=== PATIENT | female | born 1955 | race Caucasian/White ===

== ENCOUNTER 2018-08-21 15:06 | Emergency (ER) | payer BC, OTHER ==
[~2018-08-21] VITALS: Ht 170.2 cm; Wt 94.3 kg
[2018-08-21 15:33] LABS: BASOPHILS % (AUTO) 0 % (0-10); EOSINOPHILS # (AUTO) 0.2 10^3/uL (0.0-0.3); EOSINOPHILS % (AUTO) 3 % (0-10); HEMATOCRIT 43 % (35-52); HEMOGLOBIN 14.5 G/DL (11.5-16.0); LYMPHOCYTES # (AUTO) 1.6 X 10^3 (1.0-4.0); LYMPHOCYTES % (AUTO) 24 % (12-44); MEAN CORPUSCULAR HEMOGLOBIN 31 PG (25-34); MEAN CORPUSCULAR HGB CONC 34 G/DL (32-36); MEAN CORPUSCULAR VOLUME 90 FL (80-99); MEAN PLATELET VOLUME 9.5 FL (7.4-10.4); MONOCYTES # (AUTO) 0.6 X 10^3 (0.0-1.0); MONOCYTES % (AUTO) 8 % (0-12); NEUTROPHILS # (AUTO) 4.3 X 10^3 (1.8-7.8); NEUTROPHILS % (AUTO) 65 % (42-75); PLATELET COUNT 82 10^3/uL (130-400); RED CELL DISTRIBUTION WIDTH 12.6 % (10.0-14.5); WHITE BLOOD COUNT 6.7 10^3/uL (4.3-11.0)
[2018-08-21 15:50] LABS: ALANINE AMINOTRANSFERASE 14 U/L (0-55); ALBUMIN 4.3 GM/DL (3.2-4.5); ALKALINE PHOSPHATASE 82 U/L (40-136); BILIRUBIN,TOTAL 0.4 MG/DL (0.1-1.0); BUN/CREATININE RATIO 12; CALCIUM 9.5 MG/DL (8.5-10.1); CARBON DIOXIDE 24 MMOL/L (21-32); CHLORIDE 104 MMOL/L (98-107); CREATININE SERUM 0.69 MG/DL (0.60-1.30); GFR ESTIMATED > 60; GLUCOSE 84 MG/DL (70-105); POTASSIUM 3.8 MMOL/L (3.6-5.0); SODIUM 141 MMOL/L (135-145); TOTAL PROTEIN 7.9 GM/DL (6.4-8.2)
[2018-08-21] MEDS ORDERED: NS 100 ML (IVPB) BAG IV ONE (16:15)
[2018-08-21] MEDS ORDERED: IOHEXOL 350 MG/ML 100 ML (OMNIPAQUE 350) VIAL IV ONE (16:15)
[2018-08-21] MEDS ORDERED: HOLD METFORMIN - RECEIVED CONTRAST 20 ML VIAL IV SCH (16:15)
--- NOTE | 2018-08-21 16:35 | Diagnostic Imaging Report ---
PROCEDURE: CT neck soft tissue with contrast. TECHNIQUE: Multiple contiguous axial images were obtained through the neck after the administration of contrast. Auto Exposure Controls were utilized during the CT exam to meet ALARA standards for radiation dose reduction. INDICATION: Left-sided neck pain. Difficulty swallowing. COMPARISON: None. FINDINGS: No mass or fluid collection in the neck. No cervical lymphadenopathy. The laryngeal and pharyngeal soft tissues are symmetric, bilaterally, with no suspicious mass or enhancement. Normal floor of the mouth, tongue base and epiglottis. Normal prevertebral soft tissues. The cervical, carotid and vertebral arteries are grossly patent on this nondedicated exam. 1.1 cm cystic lesion in the right thyroid is nonspecific. The major salivary glands are negative. The visualized paranasal sinuses, mastoids and skull base are negative. Moderate degenerative endplate changes in the cervical spine. No acute osseous finding. IMPRESSION: 1. No acute CT finding in the neck. 2. Nonspecific cystic nodule in the right thyroid does not meet size criteria for additional followup. Dictated by: Dictated on workstation # [id number]
[2018-08-21] MEDS ORDERED: KETOROLAC 30 MG/ML VIAL IVP ONE (18:00)
[2018-08-21] MEDS ORDERED: cefTRIAXone FOR IV USE 1,000 MG in WATER (STERILE) FOR INJECTION 10 ML IV ONE (18:00)
[2018-08-21] MEDS ORDERED: RX-HYDROCODONE/APAP 5/325 MG #4 TAB PK PO PRN (18:45)
[2018-08-21] MEDS ORDERED: CEFD300C3 PO (18:50)
[2018-08-21] MEDS ORDERED: ACHD5005 PO (18:50)
--- NOTE | 2018-08-21 18:50 | ED Neck-Back Pain/Injury ---
General Chief Complaint: Head/Cervical Problems Stated Complaint: PAIN IN BACK OF NECK Nursing Triage Note: PT TO ED W/ C/O LT SIDE NECK PAIN ONSET AFTER WAKING, PROGRESSIVELY GETTING WORSE. ALSO C/O "GLOB IN THROAT" WHEN SWALLOWING. PT DENIES INJURY Nursing Sepsis Screen: No Definite Risk Source of Information: Patient Exam Limitations: No Limitations History of Present Illness Date Seen by Provider: Aug 21, 2018 Time Seen by Provider: 15:11 Initial Comments This 62-year-old woman presents to the emergency room as referred by [facility] urgent care for reasons of pain with swallowing. She feels like there is "a wad in the back of my throat" starting yesterday morning. She has a sharp pain inferior to the left occiput when swallowing. She does not actually have any difficulty with the mechanism of swallowing. [facility] urgent care sent her here because they were concerned about possible neurologic deficits that could represent stroke. Stroke activation was not paged as symptoms were greater than 24 hours old in no neurologic deficits could be found on assessment. Patient states she is able to swallow food and fluids without any mechanical difficulty, but swallowing does cause a pain inferior to the left occiput. She has never had this problem before. She has no swelling of the tongue or lip. Family reports her speech is normal with the exception of slight muffling. Articulation otherwise seems normal. She is afebrile. Patient recently completed hydrocodone and amoxicillin for dental infection. She is going back to the dentist soon for an extraction of a tooth on the right. Patient went to the clinic yesterday for this issue and started diclofenac. She states this medication is not particularly helpful in treating the pain. Allergies and Home Medications Allergies Coded Allergies: No Known Drug Allergies (Unverified , 08/21/18) Home Medications Cefdinir 300 Mg Capsule, 300 MG PO BID Prescribed by: FREDY MERRITT on 08/21/181849 Hydrocodone Bit/Acetaminophen 1 Tab Tab, 1 EACH PO Q4-6HR PRN for PAIN-MODERATE Prescribed by: FREDY MERRITT on 08/21/181849 Patient Home Medication List Home Medication List Reviewed: Yes Review of Systems Constitutional: no symptoms reported EENTM: see HPI Respiratory: no symptoms reported Cardiovascular: no symptoms reported Gastrointestinal: no symptoms reported Genitourinary: no symptoms reported : No Musculoskeletal: no symptoms reported Skin: no symptoms reported Psychiatric/Neurological: No Symptoms Reported Past Zddrhpt-Blzwkx-Ighgwf Hx Past Med/Social Hx: Reviewed and Corrections made Patient Social History Alcohol Use: Denies Use Recreational Drug Use: No Smoking Status: Never a Smoker 2nd Hand Smoke Exposure: No Recent Foreign Travel: No Contact w/Someone Who Travel: No Recent Infectious Disease Expo: No Recent Hopitalizations: No Seasonal Allergies Seasonal Allergies: No Past Medical History Surgeries: Yes Hysterectomy Respiratory: No Cardiac: Yes Hypertension (not yet treated) Neurological: No [employer] History: Hysterectomy Genitourinary: No Gastrointestinal: No Musculoskeletal: No Endocrine: No HEENT: No Cancer: No Psychosocial: No Integumentary: No Blood Disorders: No Physical Exam Vital Signs Vital Signs - First Documented 08/21/18 15:12 Temp 98.1 Pulse 86 Resp 18 B/P (MAP) 185/102 (129) Pulse Ox 98 O2 Delivery Room Air Capillary Refill : Less Than 3 Seconds Height, Weight, BMI Height: 5'7.00" Weight: 208lbs. oz. 94.216363cc; BMI Method:Stated General Appearance: No Apparent Distress, WD/WN HEENT: PERRL/EOMI, TMs Normal, Normal ENT Inspection, Other (pharyngeal exam is difficult due to a low palate. There appears to be mild edema and erythema of the posterior pharynx. No purulent drainage or white patches.) Neck: Full Range of Motion, Normal Inspection, Non Tender, Supple Cardiovascular: Regular Rate, Rhythm, No Edema, No Murmur Respiratory: Lungs Clear, Normal Breath Sounds, No Accessory Muscle Use, No Respiratory Distress Gastrointestinal: Non Tender, Soft Extremity: Normal Inspection, No Pedal Edema Neurologic/Psychiatric: Alert, Oriented x3, No Motor/Sensory Deficits, Normal Mood/Affect, insulation board back tender II-XII Norm as Tested Skin: Normal Color, Warm/Dry Progress/Results/Core Measures Results/Orders Lab Results Laboratory Tests Test 08/21/18 15:25 Range/Units White Blood Count 6.7 4.3-11.0 10^3/uL Red Blood Count 4.70 4.35-5.85 10^6/uL Hemoglobin 14.5 11.5-16.0 G/DL Hematocrit 43 35-52 % Mean Corpuscular Volume 90 80-99 FL Mean Corpuscular Hemoglobin 31 25-34 PG Mean Corpuscular Hemoglobin Concent 34 32-36 G/DL Red Cell Distribution Width 12.6 10.0-14.5 % Platelet Count 82 L 130-400 10^3/uL Mean Platelet Volume 9.5 7.4-10.4 FL Neutrophils (%) (Auto) 65 42-75 % Lymphocytes (%) (Auto) 24 12-44 % Monocytes (%) (Auto) 8 0-12 % Eosinophils (%) (Auto) 3 0-10 % Basophils (%) (Auto) 0 0-10 % Neutrophils # (Auto) 4.3 1.8-7.8 X 10^3 Lymphocytes # (Auto) 1.6 1.0-4.0 X 10^3 Monocytes # (Auto) 0.6 0.0-1.0 X 10^3 Eosinophils # (Auto) 0.2 0.0-0.3 10^3/uL Basophils # (Auto) 0.0 0.0-0.1 10^3/uL Sodium Level 141 135-145 MMOL/L Potassium Level 3.8 3.6-5.0 MMOL/L Chloride Level 104 98-107 MMOL/L Carbon Dioxide Level 24 21-32 MMOL/L Anion Gap 13 5-14 MMOL/L Blood Urea Nitrogen 8 7-18 MG/DL Creatinine 0.69 0.60-1.30 MG/DL Estimat Glomerular Filtration Rate > 60 BUN/Creatinine Ratio 12 Glucose Level 84 70-105 MG/DL Calcium Level 9.5 8.5-10.1 MG/DL Corrected Calcium 9.3 8.5-10.1 MG/DL Total Bilirubin 0.4 0.1-1.0 MG/DL Aspartate Amino Transf (AST/SGOT) 14 5-34 U/L Alanine Aminotransferase (ALT/SGPT) 14 0-55 U/L Alkaline Phosphatase 82 40-136 U/L C-Reactive Protein High Sensitivity 2.19 H 0.00-0.50 MG/DL Total Protein 7.9 6.4-8.2 GM/DL Albumin 4.3 3.2-4.5 GM/DL Group A Streptococcus Screen NEGATIVE NEGATIVE My Orders Orders - FREDY ALMANZA MD Cbc With Automated Diff (08/21/18 15:22) Comprehensive Metabolic Panel (08/21/18 15:22) Hs C Reactive Protein (08/21/18 15:22) Rapid Strep A Screen (08/21/18 15:22) Ed Iv/Invasive Line Start (08/21/18 15:22) Ct Neck (Soft Tissue) W (08/21/18 16:05) Iohexol Injection (Omnipaque 350 Mg/Ml 1 (08/21/18 16:15) Received Contrast (Hold Metformin- Contr (08/21/18 16:15) Ns (Ivpb) (Sodium Chloride 0.9% Ivpb Bag (08/21/18 16:15) Ketorolac Injection (Toradol Injection) (08/21/18 18:00) Ceftriaxone For Iv Use (Rocephin For I (08/21/18 18:00) Rx-Hydrocodone/Apap 5-325 Mg (Rx-Vicodin (08/21/18 18:45) Medications Given in ED Vital Signs/I&O 08/21/18 08/21/18 15:12 19:01 Temp 98.1 98.1 Pulse 86 77 Resp 18 18 B/P (MAP) 185/102 (129) 161/87 (111) Pulse Ox 98 95 O2 Delivery Room Air Room Air Blood Pressure Mean: 129 Progress Progress Note : Progress Note CT soft tissues of the neck was obtained to evaluate for possible mass or abs cess in the neck causing this sensation and pain. No significant pathologic findings were reported. There was some evidence of inflammation of the posterior pharynx on exam. Rapid strep test was negative. Patient was empirically treated with Rocephin and Omnicef was prescribed. Patient did have moderate improvement in pain with Toradol. Ibuprofen and hydrocodone were recommended to take at home. Ultimately, no specific cause for her pain was identified. I'm suspicious she is having referred pain from the throat or a tooth. Patient seemed to have no neurologic deficits with swallowing or neurologic exam. Speech was normal. Outpatient follow-up was recommended. Referral to ENT might be appropriate if antibiotics do not correct her problem. Diagnostic Imaging Diagonstic Imaging: CT Plain Films/CT/US/NM/MRI: other (CT neck) Comments CT neck viewed by me and report reviewed. See report below: NAME: ROBERT MUSE MED REC#: [id number] PT STATUS: REG ER : 1955 PHYSICIAN: RFEDY ALMANZA MD ADMIT DATE: 08/21/18/ER Signed Date of Exam: 08/21/18 CT NECK (SOFT TISSUE) W PROCEDURE: CT neck soft tissue with contrast. TECHNIQUE: Multiple contiguous axial images were obtained through the neck after the administration of contrast. Auto Exposure Controls were utilized during the CT exam to meet ALARA standards for radiation dose reduction. INDICATION: Left-sided neck pain. Difficulty swallowing. COMPARISON: None. FINDINGS: No mass or fluid collection in the neck. No cervical lymphadenopathy. The laryngeal and pharyngeal soft tissues are symmetric, bilaterally, with no suspicious mass or enhancement. Normal floor of the mouth, tongue base and epiglottis. Normal prevertebral soft tissues. The cervical, carotid and vertebral arteries are grossly patent on this nondedicated exam. 1.1 cm cystic lesion in the right thyroid is nonspecific. The major salivary glands are negative. The visualized paranasal sinuses, mastoids and skull base are negative. Moderate degenerative endplate changes in the cervical spine. No acute osseous finding. IMPRESSION: 1. No acute CT finding in the neck. 2. Nonspecific cystic nodule in the right thyroid does not meet size criteria for additional followup. Dictated by: Dictated on workstation # [id number] Dict: 08/21/18 1630 Trans: 08/21/18 1645 Interpreted by: ANTOINETTE FLORES MD Electronically signed by: ANTOINETTE FLORES MD 08/21/18 1645 Departure Impression Primary Impression: Pharyngitis Qualified Codes: J02.9 - Acute pharyngitis, unspecified Additional Impression: Head pain Qualified Codes: R51 - Headache Disposition: 01 HOME, SELF-CARE Condition: Improved Departure-Patient Inst. Referrals: NO,LOCAL PHYSICIAN (PCP/Family) Primary Care Physician Patient Instructions: Sore Throat in Adults Add. Discharge Instructions: The exact cause of your head pain is uncertain but the pain may be referred from the mouth or throat. Complete the antibiotics as prescribed. Use an NSAID medications such as diclofenac as prescribed or ibuprofen up to 600 mg every 6 hours as needed for primary pain control. Use your hydrocodone as a backup pain medication. Follow-up with your primary care provider on Thursday if you're still having symptoms. A follow-up with your dentist may also be appropriate. All discharge instructions reviewed with patient and/or family. Voiced understanding. Scripts Hydrocodone Bit/Acetaminophen (Hydrocodone/Acetaminophen 5/325mg Tablet) 1 Tab Tab 1 EACH PO Q4-6HR PRN for PAIN-MODERATE MDD 10, #10 TAB Prov: FREDY ALMANZA MD 08/21/18 Cefdinir (Cefdinir) 300 Mg Capsule 300 MG PO BID, #14 CAP Prov: FREDY ALMANZA MD 08/21/18 Copy Copies To 1: AZEB JUNG MD, JOSHUA T MD Aug 21, 2018 18:50
[2018-08-21 19:01] VITALS: BP 161/87
== END 2018-08-21 19:01 | disposition home or self-care (01) ==
LOC: EDUNIT# 15:06 → ER 15:09
DX: J02.9 Acute pharyngitis, unspecified (principal); R51 Headache; I10 Essential (primary) hypertension; Z90.710 Acquired absence of both cervix and uterus
CPT/HCPCS: 36415; 70491; 80053; 85025; 86141; 87430; 96365; 96375